=== PATIENT | female | born 1965 | race Caucasian/White ===

== ENCOUNTER 2016-12-11 08:00 | Outpatient (CLI) | payer SELFPAY | END 2016-12-11 23:59 | DX: E03.9 Hypothyroidism, unspecified (principal) ==

== ENCOUNTER 2018-04-28 08:00 | Outpatient (CLI) | payer SELFPAY ==
[2018-04-28 12:51] LABS: BASOPHILS # (AUTO) 0.1 10^3/uL (0.0-0.1); BASOPHILS % (AUTO) 0.8 %; EOSINOPHILS # (AUTO) 0.2 10^3/uL (0.0-0.7); EOSINOPHILS % (AUTO) 2.7 %; LYMPHOCYTES # (AUTO) 1.9 10^3/uL (1.5-3.5); LYMPHOCYTES % (AUTO) 28.3 %; MEAN CORPUSCULAR HEMOGLOBIN 29.5 pg (27.0-31.0); MEAN CORPUSCULAR HGB CONC 33.8 g/dL (32.0-36.0); MEAN CORPUSCULAR VOLUME 87.3 fL (81.0-99.0); MEAN PLATELET VOLUME 10.3 fL (7.9-10.8); MONOCYTES # (AUTO) 0.4 10^3/uL (0.0-1.0); MONOCYTES % (AUTO) 5.6 %; NEUTROPHILS # (AUTO) 4.2 10^3/uL (1.5-6.6); NEUTROPHILS % (AUTO) 62.6 %; PLT - PLATELET COUNT 213 10^3/uL (130-450); RED BLOOD COUNT 5.08 10^6/uL (4.20-5.40); RED CELL DISTRIBUTION WIDTH 14.3 % (12.0-15.0); WHITE BLOOD COUNT 6.8 x10^3/uL (4.8-10.8)
[2018-04-28 13:11] LABS: THYROID STIMULATING HORMONE 23.25 uIU/mL (0.34-5.60)
[2018-04-28 13:13] LABS: FREE T4 (FREE THYROXINE) 0.68 ng/dL (0.58-1.64)
[2018-04-28 13:21] LABS: ALBUMIN 4.2 g/dL (3.2-5.5); ALBUMIN/GLOBULIN RATIO 1.2 (1.0-2.2); ALKALINE PHOSPHATASE 64 IU/L (42-121); ALT ALANINE AMINOTRANSFERASE 21 IU/L (10-60); AST ASPARTATE AMINOTRANSFERASE 23 IU/L (10-42); BILIRUBIN,TOTAL 0.7 mg/dL (0.2-1.0); BUN - BLOOD UREA NITROGEN 14 mg/dL (6-20); CALCIUM 9.7 mg/dL (8.5-10.3); CARBON DIOXIDE - CO2 25 mmol/L (21-32); CHLORIDE 107 mmol/L (101-111); CHOL/HDL RATIO 5.5 (<4.4); CHOLESTEROL 266 mg/dL; CREATININE 0.8 mg/dL (0.4-1.0); GFR - MDRD 75 (>89); GLUCOSE 94 mg/dL (70-100); HDL CHOLESTEROL 48 mg/dL; LDL CHOLESTEROL,CALCULATED 201 mg/dL; LDL/HDL RATIO 4.2 (<4.4); SODIUM 139 mmol/L (135-145); TOTAL PROTEIN 7.8 g/dL (6.7-8.2); VLDL CHOLESTEROL 17 mg/dL
== END 2018-04-28 08:01 | disposition home or self-care (01) ==
LOC: LAB.N 08:00
PROVIDERS: ATTEND Family Medicine
DX: E78.5 Hyperlipidemia, unspecified (principal); E03.9 Hypothyroidism, unspecified; I10 Essential (primary) hypertension
CPT/HCPCS: 36415; 80053; 80061; 83721; 84439; 84443; 84481; 85025

== ENCOUNTER → 2018-07-02 | Outpatient (CLI) | payer SELFPAY | LOC: LAB.N 08:00 | PROVIDERS: ATTEND Family Medicine | DX: E03.9 Hypothyroidism, unspecified (principal) | CPT/HCPCS: 36415; 84443 ==

== ENCOUNTER 2020-12-20 11:43 | Outpatient (CLI) | payer MEDICAID ==
[2020-12-20 12:29] LABS: CALCIUM, IONIZED 1.2 mmol/L (1.15-1.33); VBG PH 7.437 (7.31-7.41)
[2020-12-20 12:39] LABS: ALBUMIN 4.4 g/dL (3.2-5.5); ALBUMIN/GLOBULIN RATIO 1.4 (1.0-2.2); BILIRUBIN,TOTAL 0.9 mg/dL (0.2-1.0); CALCIUM 10.2 mg/dL (8.5-10.3); CREATININE 0.8 mg/dL (0.4-1.0); POTASSIUM 4.1 mmol/L (3.5-5.0); TOTAL PROTEIN 7.6 g/dL (6.7-8.2)
[2020-12-20 12:57] LABS: THYROID STIMULATING HORMONE 2.43 uIU/mL (0.34-5.60)
== END 2020-12-20 11:44 | disposition home or self-care (01) ==
LOC: LAB 11:43
PROVIDERS: ATTEND Internal Medicine
DX: I10 Essential (primary) hypertension (principal); E83.52 Hypercalcemia; E03.9 Hypothyroidism, unspecified
CPT/HCPCS: 36415; 80053; 82330; 83970; 84443; 86376; 86800

== ENCOUNTER 2021-01-24 09:18 | Outpatient (CLI) | payer MEDICAID ==
--- NOTE | 2021-01-24 18:23 | Ultrasound Report ---
PROCEDURE: Head or Neck Soft Tissue INDICATIONS: EDGAR'S THYROIDITIS, THYORMEGALY TECHNIQUE: Real-time scanning was performed of the thyroid gland, with image documentation. COMPARISON: None FINDINGS: Right: Thyroid lobe measures 3.2 x 1.1 x 1.1 cm, and is heterogeneous in echotexture. Left: Thyroid lobe measures 2.0 x 0.9 x 1.2 cm, and is heterogeneous in echotexture. Isthmus: 2 mm thick. IMPRESSION: Heterogeneous appearance of the thyroid gland without discrete nodule. Reviewed by: Kiana Westbrook MD on 01/24/2021 5:21 PM WAYLON Approved by: Kiana Westbrook MD on 01/24/2021 5:21 PM WAYLON Station ID: [id number]
== END 2021-01-24 09:19 | disposition home or self-care (01) ==
LOC: DI 09:18
PROVIDERS: ATTEND Internal Medicine
DX: E06.3 Autoimmune thyroiditis (principal); E01.0 Iodine-deficiency related diffuse (endemic) goiter

== ENCOUNTER 2021-01-31 07:22 | Outpatient (CLI) | payer MEDICAID ==
[2021-01-31 15:41] LABS: ALBUMIN 4.4 g/dL (3.2-5.5); ALBUMIN/GLOBULIN RATIO 1.4 (1.0-2.2); BILIRUBIN,TOTAL 0.9 mg/dL (0.2-1.0); CALCIUM 9.5 mg/dL (8.5-10.3); CREATININE 0.8 mg/dL (0.4-1.0); POTASSIUM 3.8 mmol/L (3.5-5.0); TOTAL PROTEIN 7.5 g/dL (6.7-8.2)
[2021-01-31 15:48] LABS: THYROID STIMULATING HORMONE 1.26 uIU/mL (0.34-5.60)
[2021-01-31 18:27] LABS: BASOPHILS # (AUTO) 0.1 10^3/uL (0.0-0.1); EOSINOPHILS # (AUTO) 0.2 10^3/uL (0.0-0.7); EOSINOPHILS % (AUTO) 3.3 %; HCT - HEMATOCRIT 44.7 % (37.0-47.0); HGB - HEMOGLOBIN 14.7 g/dL (12.0-16.0); LYMPHOCYTES # (AUTO) 1.6 10^3/uL (1.5-3.5); LYMPHOCYTES % (AUTO) 32.2 %; MEAN CORPUSCULAR HEMOGLOBIN 28.6 pg (27.0-31.0); MEAN CORPUSCULAR HGB CONC 32.9 g/dL (32.0-36.0); MEAN PLATELET VOLUME 12.9 fL (7.9-10.8); MONOCYTES # (AUTO) 0.4 10^3/uL (0.0-1.0); MONOCYTES % (AUTO) 7.1 %; NEUTROPHILS # (AUTO) 2.9 10^3/uL (1.5-6.6); NEUTROPHILS % (AUTO) 56.2 %; PLT - PLATELET COUNT 233 10^3/uL (130-450); RED BLOOD COUNT 5.14 10^6/uL (4.20-5.40); RED CELL DISTRIBUTION WIDTH 13.9 % (12.0-15.0); WHITE BLOOD COUNT 5.1 x10^3/uL (4.8-10.8)
[2021-02-02 23:51] LABS: THYROID PEROXIDASE ANTIBODIES 403 IU/mL (<9)
== END 2021-01-31 07:23 | disposition home or self-care (01) ==
LOC: LAB.S 07:22
PROVIDERS: ATTEND Internal Medicine
DX: I10 Essential (primary) hypertension (principal); E83.52 Hypercalcemia; E03.9 Hypothyroidism, unspecified; E06.3 Autoimmune thyroiditis
CPT/HCPCS: 36415; 80050; 82330; 83970; 86376; 86800

== ENCOUNTER 2021-06-21 16:33 | Outpatient (CLI) | payer MEDICAID ==
--- NOTE | 2021-06-21 17:28 | XRAY Report ---
PROCEDURE: Shoulder 3 View RT INDICATIONS: SHOULDER JOINT PAIN, RIGHT TECHNIQUE: 3 views of the shoulder were acquired. COMPARISON: None. FINDINGS: Bones: No fractures or dislocations. Small well-corticated ossicle near the rotator cuff. There is d egenerative spurring at the acromioclavicular joint. No suspicious bony lesions. Visualized ribs maria isabel ear intact. Soft tissues: No suspicious soft tissue calcifications. IMPRESSION: Mild degenerative change at the AC joint is appreciated. Well-corticated ossicle near the rotator cuff. This could be due to an accessory ossicle or sequelae of calcific tendinitis. Consider further evaluation of the shoulder with MRI. Reviewed by: Geovani Cannon MD on 06/21/2021 5:27 PM PDT Approved by: Geovani Cannon MD on 06/21/2021 5:27 PM PDT Station ID: [id number]
== END 2021-06-21 23:59 | disposition home or self-care (01) ==
LOC: DI.S 16:33
PROVIDERS: ATTEND Physician Assistant Medical
DX: M19.011 Primary osteoarthritis, right shoulder (principal)

== ENCOUNTER 2021-06-25 12:17 | Outpatient (CLI) | payer MEDICAID ==
[2021-06-25 15:45] LABS: THYROID STIMULATING HORMONE 9.42 uIU/mL (0.34-5.60)
[2021-06-25 16:30] LABS: FREE T4 (FREE THYROXINE) 0.89 ng/dL (0.58-1.64)
== END 2021-06-25 12:18 | disposition home or self-care (01) ==
LOC: LAB.S 12:17
PROVIDERS: ATTEND Internal Medicine
DX: E06.3 Autoimmune thyroiditis (principal); E01.0 Iodine-deficiency related diffuse (endemic) goiter
CPT/HCPCS: 36415; 84439; 84443

== ENCOUNTER 2021-08-29 10:17 | Outpatient (CLI) | payer MEDICAID ==
[2021-08-29 15:46] LABS: THYROID STIMULATING HORMONE 9.61 uIU/mL (0.34-5.60)
== END 2021-08-29 10:18 | disposition home or self-care (01) ==
LOC: LAB.S 10:17
PROVIDERS: ATTEND Internal Medicine
DX: E06.3 Autoimmune thyroiditis (principal)
CPT/HCPCS: 36415; 84439; 84443

== ENCOUNTER 2021-10-29 10:55 | Outpatient (CLI) | payer MEDICAID ==
[2021-10-29 15:53] LABS: THYROID STIMULATING HORMONE 1.66 uIU/mL (0.34-5.60)
== END 2021-10-29 10:56 | disposition home or self-care (01) ==
LOC: LAB.S 10:55
PROVIDERS: ATTEND Internal Medicine
DX: E03.9 Hypothyroidism, unspecified (principal)
CPT/HCPCS: 36415; 84443

== ENCOUNTER 2021-11-14 07:14 | Outpatient (CLI) | payer MEDICAID ==
--- NOTE | 2021-11-14 12:06 | MRI Report ---
PROCEDURE: Shoulder RT W/O INDICATIONS: CALCIFIC TENDINITIS OF RIGHT SHOULDER TECHNIQUE: Noncontrast oblique coronal T2 fast spin echo with fat saturation, oblique sagittal T1 spin echo and T2 fast spin echo with fat saturation, axial T1 spin echo and T2 fast spin echo with fat saturation t hrough the shoulder. COMPARISON: None. Findings: Supraspinatus: Moderate tendinopathy with small partial articular surface and interstitial tears. Infraspinatus: Mild tendinopathy with small partial articular surface and interstitial tears. Subscapularis: Mild tendinopathy without evidence of tear. Teres minor: No evidence of tear. Labrum: No evidence of tear. Biceps tendon: No evidence of subluxation or tear. Fluid surrounds the tendon, which may reflect teno synovitis. Acromioclavicular joint: Mild to moderate AC joint degeneration. Muscle: No significant atrophy. Bones: No significant abnormality. Specifically, no evidence of fracture, contusion, or necrosis. Miscellaneous: Small glenohumeral joint effusion. Small subacromial/subdeltoid bursal fluid. No intra-articular bodies. Intact coracoclavicular ligament. IMPRESSION: 1. Moderate supraspinatus tendinopathy with small partial surface and interstitial tears. 2. Mild infraspinatus tendinopathy with small partial articular surface and interstitial tears. 3. Mild subscapularis tendinopathy without tear. 4. Biceps tenosynovitis. 5. Small glenohumeral joint effusion. 6. Mild subacromial/subdeltoid bursitis. 7. Mild to moderate AC joint degeneration. Reviewed by: Yahir Fenton MD on 11/14/2021 12:05 PM PST Approved by: Yahir Fenton MD on 11/14/2021 12:05 PM PST Station ID: [id number]
== END 2021-11-14 07:15 | disposition home or self-care (01) ==
LOC: DI 07:14
PROVIDERS: ATTEND Physician Assistant
DX: M75.101 Unspecified rotator cuff tear or rupture of right shoulder, not specified as traumatic (principal); M25.411 Effusion, right shoulder; M19.011 Primary osteoarthritis, right shoulder; M75.51 Bursitis of right shoulder; M65.821 Other synovitis and tenosynovitis, right upper arm

== ENCOUNTER 2021-12-04 08:00 | Outpatient (CLI) | payer MEDICAID ==
--- NOTE | 2021-12-04 11:10 | XRAY Report ---
PROCEDURE: Shoulder 3 View RT INDICATIONS: Shoulder pain TECHNIQUE: 3 views of the shoulder were acquired. COMPARISON: None. FINDINGS: Bones: Glenohumeral joint space is maintained without significant degenerative changes. There is mode rate acromioclavicular narrowing with hypertrophy of the superior acromioclavicular ligament. A herrera hly corticated ovoid calcific density projecting over the superior humeral head may represent ligamen tous calcification or potentially an intra-articular loose body. No fractures or dislocations. No martinez spicious bony lesions. Visualized ribs appear intact. Soft tissues: No suspicious soft tissue calcifications. IMPRESSION: Moderate acromioclavicular degenerative change. Smoothly corticated ovoid calcification projecting over the superior humeral head may represent intra -articular loose body or ligamentous calcification. Reviewed by: Elliot Dumont MD on 12/04/2021 11:08 AM PST Approved by: Elliot Dumont MD on 12/04/2021 11:08 AM PST Station ID: [id number]
== END 2021-12-04 23:59 ==
LOC: DI.WOS 08:00
PROVIDERS: ATTEND Orthopaedic Surgery
DX: M75.31 Calcific tendinitis of right shoulder (principal); M19.011 Primary osteoarthritis, right shoulder; R93.6 Abnormal findings on diagnostic imaging of limbs

== ENCOUNTER 2022-06-19 10:33 | Outpatient (CLI) | payer MEDICAID ==
[2022-06-19 15:22] LABS: THYROID STIMULATING HORMONE 2.82 uIU/mL (0.34-5.60)
== END 2022-06-19 10:34 | disposition home or self-care (01) ==
LOC: LAB.S 10:33
PROVIDERS: ATTEND Registered Nurse
DX: R94.6 Abnormal results of thyroid function studies (principal)
CPT/HCPCS: 36415; 84443

== ENCOUNTER 2023-01-03 10:43 | Outpatient (CLI) | payer MEDICAID ==
[2023-01-03 15:02] LABS: THYROID STIMULATING HORMONE 2.29 uIU/mL (0.34-5.60)
== END 2023-01-03 10:44 | disposition home or self-care (01) ==
LOC: LAB.S 10:43
PROVIDERS: ATTEND Registered Nurse
DX: R94.6 Abnormal results of thyroid function studies (principal)
CPT/HCPCS: 36415; 84443

== ENCOUNTER 2023-12-14 18:12 | Emergency (ER) | payer MEDICAID, OTHER ==
--- NOTE | 2023-12-14 19:00 | XRAY Report ---
PROCEDURE: Wrist 3+V RT INDICATIONS: Trauma TECHNIQUE: 3 views of the wrist were acquired. COMPARISON: None. FINDINGS: Bones: No fractures or dislocations. No suspicious bony lesions. Soft tissues: No suspicious soft tissue calcifications or masses. IMPRESSION: No acute bony abnormality. If pain persists with conservative management, consider further evaluation with repeat radiographs in 7-10 days. Reviewed by: Viridiana Lopez MD on 12/14/2023 5:59 PM AKDT Approved by: Viridiana Lopez MD on 12/14/2023 5:59 PM AKDT Station ID: [id number]
--- NOTE | 2023-12-14 19:01 | XRAY Report ---
PROCEDURE: Hand 3+V RT INDICATIONS: Trauma TECHNIQUE: 3 views of the hand(s) acquired. COMPARISON: None. FINDINGS: Bones: No fractures or dislocations. No suspicious bony lesions. Soft tissues: No suspicious soft tissue calcifications or masses. IMPRESSION: No acute bony abnormality. If pain persists with conservative management, consider further evaluation with repeat radiographs in 7-10 days. Reviewed by: Viridiana Lopez MD on 12/14/2023 6:00 PM AKDT Approved by: Viridiana Lopez MD on 12/14/2023 6:00 PM AKDT Station ID: [id number]
--- NOTE | 2023-12-14 19:13 | ED Physician Documentation ---
PD HPI UPPER EXT INJURY - Stated complaint Stated Complaint: FALL/R WRIST PX - Chief complaint Chief Complaint: Trauma Ext - Additonal information Additional information: 58-year-old female presents emergency department for right wrist pain. Patient says that [place] lost [place] balance and fell on outstretched arm. She has some right wrist swelling full range of motion to the right wrist but pain with palpation to the volar aspect of the hand. She did not hit her head she did not lose consciousness no abrasions or open wounds elsewhere on the body. PD PAST MEDICAL HISTORY - Past Medical History Past Medical History: Yes Endocrine/Autoimmune: HyPOthyroidism Other Past Medical History: skin cancer - Past Surgical History Past Surgical History: Yes Ortho: ACL reconstruction /[employer]: section Derm: Skin cancer surgery - Present Medications Home Medications: Ambulatory Orders Medication Instructions Recorded Confirmed Levothyroxine [Synthroid] 100 mcg PO QDAC 12/14/23 12/14/23 - Allergies Allergies/Adverse Reactions: Allergies Allergy/AdvReac Type Severity Reaction Status Date / Time Opioids - Morphine Analogues Allergy Anaphylaxis Verified 12/14/23 18:18 - Social History Does the pt smoke?: No Smoking Status: Never smoker PD ED PE NORMAL - Vitals Vital signs reviewed: Yes - General General: Alert and oriented X 3, No acute distress, Well developed/nourished - Derm Derm: Normal color, Warm and dry, No rash - Free text exam Free text exam: Right wrist: Mild swelling to the right wrist/right hand. Full range of motion with flexion extension of the right wrist. Full range of motion to all 5 fingers of the right hand. No snuffbox tenderness, mild tenderness with palpation to the volar aspect of the wrist hand region. Results - Vitals Vitals: Vital Signs - 24 hr 12/14/23 12/14/23 18:18 19:32 Temperature 36.7 C Heart Rate 86 70 Respiratory 18 16 Rate Blood Pressure 169/93 H 138/89 H O2 Saturation 98 100 Oxygen O2 Source Room air - Rads (name of study) Right hand and wrist x-rays Relevant Findings:: Final report received, EMP independent interpretation of test, Other (No acute bony abnormalities no fractures or dislocations.) PD Medical Decision Making - ED course ED course: 58-year-old female presents emergency department for right wrist pain. I believe that she is experiencing pain from a right wrist sprain. We have completed x-rays of the hand and the wrist there is no obvious fractures or other acute abnormalities at this time. Patient denies any snuffbox tenderness. She is placed in a thumb spica offered additional pain medication but patient declined at this time so that she feels like her pain is well-controlled with [id number] medications like Tylenol and ibuprofen. She is told if pain persist after 7 to 10 days to have repeat imaging with her primary care provider. All questions answered safe for discharge. Departure - Departure Disposition: 01 Home, Self Care Clinical Impression: Right wrist sprain Qualifiers: Encounter type: initial encounter Qualified Code(s): S63.501A - Unspecified sprain of right wrist, initial encounter Instructions: ED Sprain Wrist Comments: We have completed x-rays of your hand and wrist and I am not seeing any abnormalities no evidence of fractures at this point in time. If after 7 to 10 days pain is gotten worse please present to your primary care provider for repeat imaging as sometimes fractures can take up to 7 to 10 days to show up on x-ray. We are sending you home with a thumb spica that you can take off throughout the day and still do some gentle range of motion exercises to your wrist and your fingers. You can alternate between Tylenol and ibuprofen for pain and discomfort and apply ice 20 minutes at a time 1 hour off. Wishing you a speedy recovery! Forms: PCP List Discharge Date/Time: 12/14/23 19:30
[2023-12-14 19:47] VITALS: BP 138/89; O2SAT 100
== END 2023-12-14 19:30 | disposition home or self-care (01) ==
LOC: ED 18:12
DX: S63.501A Unspecified sprain of right wrist, initial encounter (principal); W18.30XA Fall on same level, unspecified, initial encounter; Y92.89 Other specified places as the place of occurrence of the external cause; E03.9 Hypothyroidism, unspecified; Z79.899 Other long term (current) drug therapy
CPT/HCPCS: 99283

== ENCOUNTER 2024-03-09 09:35 | Outpatient (CLI) | payer OTHER ==
[2024-03-09 14:56] LABS: BASOPHILS # (AUTO) 0.1 10^3/uL (0.0-0.1); BASOPHILS % (AUTO) 0.9 %; EOSINOPHILS # (AUTO) 0.1 10^3/uL (0.0-0.7); EOSINOPHILS % (AUTO) 1.6 %; HCT - HEMATOCRIT 46.3 % (37.0-47.0); HGB - HEMOGLOBIN 15.2 g/dL (12.0-16.0); LYMPHOCYTES # (AUTO) 2.3 10^3/uL (1.5-3.5); LYMPHOCYTES % (AUTO) 26.1 %; MEAN CORPUSCULAR HEMOGLOBIN 28.3 pg (27.0-31.0); MEAN CORPUSCULAR HGB CONC 32.8 g/dL (32.0-36.0); MEAN CORPUSCULAR VOLUME 86.1 fL (81.0-99.0); MEAN PLATELET VOLUME 12.4 fL (7.9-10.8); MONOCYTES # (AUTO) 0.6 10^3/uL (0.0-1.0); MONOCYTES % (AUTO) 7.3 %; NEUTROPHILS # (AUTO) 5.5 10^3/uL (1.5-6.6); NEUTROPHILS % (AUTO) 63.8 %; PLT - PLATELET COUNT 226 10^3/uL (130-450); RED BLOOD COUNT 5.38 10^6/uL (4.20-5.40); RED CELL DISTRIBUTION WIDTH 14.1 % (12.0-15.0); WHITE BLOOD COUNT 8.7 x10^3/uL (4.8-10.8)
[2024-03-09 15:48] LABS: ALBUMIN 4.6 g/dL (3.2-5.5); ALBUMIN/GLOBULIN RATIO 1.6 (1.0-2.2); ALKALINE PHOSPHATASE 76 IU/L (42-121); ALT ALANINE AMINOTRANSFERASE 24 IU/L (10-60); AST ASPARTATE AMINOTRANSFERASE 18 IU/L (10-42); BILIRUBIN,TOTAL 0.5 mg/dL (0.2-1.0); BUN - BLOOD UREA NITROGEN 15 mg/dL (6-20); CARBON DIOXIDE - CO2 26 mmol/L (21-32); CHLORIDE 102 mmol/L (101-111); CHOL/HDL RATIO 5.3 (<4.4); CHOLESTEROL 262 mg/dL; CREATININE 0.8 mg/dL (0.6-1.3); GFR - MDRD 73 (>89); GLUCOSE 101 mg/dL (74-104); HDL CHOLESTEROL 49 mg/dL; LDL CHOLESTEROL,CALCULATED 179 mg/dL; LDL/HDL RATIO 3.7 (<4.4); POTASSIUM 4.2 mmol/L (3.5-4.5); SODIUM 134 mmol/L (135-145); TOTAL PROTEIN 7.4 g/dL (6.4-8.9); TRIGLYCERIDES 168 mg/dL (48-352); VLDL CHOLESTEROL 34 mg/dL
[2024-03-09 16:00] LABS: THYROID STIMULATING HORMONE 4.66 uIU/mL (0.34-5.60)
== END 2024-03-09 09:36 | disposition home or self-care (01) ==
LOC: LAB.S 09:35
PROVIDERS: ATTEND Registered Nurse
DX: Z13.228 Encounter for screening for other metabolic disorders (principal); Z13.220 Encounter for screening for lipoid disorders; Z13.29 Encounter for screening for other suspected endocrine disorder; Z13.0 Encounter for screening for diseases of the blood and blood-forming organs and certain disorders involving the immune mechanism
CPT/HCPCS: 36415; 80053; 80061; 83721; 84443; 85025